=== PATIENT | female | born 1985 | race Two or more races ===

== ENCOUNTER 2017-11-30 18:10 | Inpatient (IN) | payer OTHER ==
[~2017-11-30] VITALS: Ht 157.5 cm; Wt 68.0 kg
[2017-11-30] MEDS ORDERED: ONDANSETRON HCL 4 MG/2 ML VIAL IV ONE (18:30)
[2017-11-30] MEDS ORDERED: LORazepam 2MG/ML-1ML VIAL IV ONE (18:30)
[2017-11-30] MEDS ORDERED: PANTOPRAZOLE 40 MG/10 ML VIAL IV ONE (18:30)
[2017-11-30] MEDS: SODIUM CHLORIDE 0.9% 1,000 ML IV SCH ×3 (18:48→22:56)
[2017-11-30 19:01] LABS: Basophils # (auto) 0 uL; Basophils % (auto) 0.2 % (0.0-2.0); Eosinophils # (auto) 0 uL; Hematocrit 42.9 % (36.0-46.0); Hemoglobin 14.3 g/dL (12.2-16.2); Lymphocytes # (auto) 0.5 uL; Lymphocytes % (auto) 2.9 % (10.0-50.0); Mean Corpuscular Hemoglobin 30.1 pg (28.0-32.0); Mean Corpuscular Hgb Conc. 33.3 g/dL (32.0-36.0); Mean Corpuscular Volume 90.3 fL (80.0-100.0); Monocytes # (auto) 0.9 uL; Monocytes % (auto) 5.2 % (0.0-12.0); Neutrophils % (auto) 91.7 % (37.0-80.0); Nucleated Red Blood Cells % 0.1 %; Platelet Count (auto) 424 10^3/uL (140-450); Red Blood Cells 4.75 10^6/uL (4.0-5.20); Red Cell Distribution Width 13.5 % (11.8-14.3); White Blood Cell 17.4 10^3/uL (4.4-10.8)
[2017-11-30 19:20] LABS: Calcium 9.4 mg/dL (8.5-10.1); Potassium 3.6 mmol/L (3.5-5.1)
[2017-11-30 19:24] LABS: Bilirubin, Total 0.8 mg/dL (0.2-1.0); Total Protein 9.2 g/dL (6.4-8.2)
[2017-11-30 19:52] LABS: BUN/Creatinine Ratio 14.2
[2017-11-30 21:43] LABS: Urine Bacteria NONE SEEN /hpf (None Seen); Urine Blood Negative /uL (Negative); Urine WBC <1 /hpf (0 - 5)
[2017-11-30] MEDS ORDERED: InsuLIN R (HUMAN) 100 UNITS in SODIUM CHL 0.9% 99 ML IV SCH (21:58)
[2017-11-30] MEDS ORDERED: SODIUM CHLORIDE 0.9% 1,000 ML IV SCH (22:23)
[2017-11-30] MEDS ORDERED: InsuLIN REG 1unit/0.01ml Soln (100units/ml) ONE (22:27)
[2017-11-30] MEDS ORDERED: HYDROcodone-ACET 5/325MG TAB PO PRN (22:30)
[2017-11-30] MEDS ORDERED: DEXTROSE (50%) 50ML SYRG IV PRN (22:30)
[2017-11-30] MEDS ORDERED: ACETAMINOPHEN 500 MG TAB PO PRN (22:30)
[2017-11-30] MEDS: ACCU-CHEK COMFORT CURVE STRIP VI SCH ×2 (22:35→22:57)
[2017-12-01] MEDS: SODIUM CHLORIDE 0.9% 1,000 ML IV SCH ×7 (00:16→17:41)
[2017-12-01] MEDS: ACCU-CHEK COMFORT CURVE STRIP VI SCH ×24 (01:30→18:08)
[2017-12-01] MEDS ORDERED: SODIUM CHLORIDE 0.9% 1,000 ML IV SCH (02:16)
[2017-12-01] MEDS: ONDANSETRON HCL 4 MG/2 ML VIAL IV PRN ×4 (02:25→19:00)
[2017-12-01 05:16] LABS: BUN/Creatinine Ratio 29.8; Calcium 8.5 mg/dL (8.5-10.1); Potassium 3.6 mmol/L (3.5-5.1)
[2017-12-01] MEDS ORDERED: LORazepam 2MG/ML-1ML VIAL ONE (07:25)
[2017-12-01] MEDS ORDERED: LORazepam 2MG/ML-1ML VIAL IV ONE (07:30)
[2017-12-01 11:04] LABS: BUN/Creatinine Ratio 32.3; Potassium 3.4 mmol/L (3.5-5.1)
[2017-12-01] MEDS ORDERED: LORazepam 2MG/ML-1ML VIAL IV PRN ×2 (13:15→15:45)
[2017-12-01] MEDS ORDERED: THROAT LOZENGES(CEPASTAT) MT PRN (15:30)
[2017-12-01] MEDS ORDERED: PANTOPRAZOLE 40 MG/10 ML VIAL IV ONE (15:45)
[2017-12-01 15:48] LABS: Basophils # (auto) 0 uL; Basophils % (auto) 0.3 % (0.0-2.0); Eosinophils # (auto) 0 uL; Hematocrit 37.1 % (36.0-46.0); Hemoglobin 12.4 g/dL (12.2-16.2); Lymphocytes # (auto) 1.1 uL; Lymphocytes % (auto) 6.1 % (10.0-50.0); Mean Corpuscular Hemoglobin 29.9 pg (28.0-32.0); Mean Corpuscular Hgb Conc. 33.3 g/dL (32.0-36.0); Mean Corpuscular Volume 89.9 fL (80.0-100.0); Monocytes # (auto) 1.2 uL; Monocytes % (auto) 6.9 % (0.0-12.0); Neutrophils # (auto) 15.6 uL; Neutrophils % (auto) 86.7 % (37.0-80.0); Platelet Count (auto) 350 10^3/uL (140-450); Red Blood Cells 4.13 10^6/uL (4.0-5.20); Red Cell Distribution Width 13.9 % (11.8-14.3)
[2017-12-01 16:03] LABS: Albumin 3.2 g/dL (3.4-5.0); BUN/Creatinine Ratio 32.2; Bilirubin, Total 0.4 mg/dL (0.2-1.0); Calcium 8.9 mg/dL (8.5-10.1); Potassium 3.4 mmol/L (3.5-5.1); Total Protein 7.4 g/dL (6.4-8.2)
[2017-12-01] MEDS ORDERED: PIPERACILLIN-TAZOB 3.375GM 100 ML IV ONE (16:30)
[2017-12-01] MEDS: POTASSIUM CHL 20MEQ/100ML 100 ML IV SCH ×2 (17:55→20:35)
[2017-12-01 18:21] LABS: BUN/Creatinine Ratio 28.6; Calcium 8.9 mg/dL (8.5-10.1); Potassium 3.2 mmol/L (3.5-5.1)
[2017-12-01] MEDS ORDERED: INSULIN LANTUS (GLARGINE) 1 /0.01ml (100units/ml) SC ONE (18:45)
[2017-12-01] MEDS ORDERED: DEXTROSE (50%) 50ML SYRG IV PRN (18:45)
[2017-12-01] MEDS ORDERED: ACCU-CHEK COMFORT CURVE STRIP VI SCH (20:00)
[2017-12-01] MEDS ORDERED: InsuLIN REG 1unit/0.01ml Soln (100units/ml) SC SCH (20:00)
[2017-12-01 20:44] LABS: Alcohol, Urine < 3.0 mg/dL (0-5); Amphetamine Screen, Urine NEGATIVE (NEGATIVE); Benzodiazephine Screen, Urine NEGATIVE (NEGATIVE); Cannabinoid Screen, Urine POSITIVE (NEGATIVE); Cocaine Screen, Urine NEGATIVE (NEGATIVE); Opiate Scree,Urine NEGATIVE (NEGATIVE); Phencyclidine Screen, Urine NEGATIVE (NEGATIVE)
[2017-12-01 20:50] LABS: Barbiturate Scree,Urine NEGATIVE (NEGATIVE)
[2017-12-01 21:20] VITALS: BP 145/93
[2017-12-02] MEDS ORDERED: PANTOPRAZOLE 40 MG/10 ML VIAL IV SCH (10:00)
[2017-12-02] MEDS ORDERED: ENOXAPARIN SOD 40 MG/0.4 ML SYRINGE SC SCH (10:00)
== END 2017-12-01 21:30 | disposition short-term general hospital (02) | DRG 637 ==
LOC: EDBD 18:10 → ER 18:17 → TELE 18:18
PROVIDERS: ADMIT Nurse Practitioner Family; ATTEND Internal Medicine
DX: E11.10 Type 2 diabetes mellitus with ketoacidosis without coma (principal); N17.0 Acute kidney failure with tubular necrosis; E11.21 Type 2 diabetes mellitus with diabetic nephropathy; F41.1 Generalized anxiety disorder; R00.0 Tachycardia, unspecified; K21.9 Gastro-esophageal reflux disease without esophagitis; N18.9 Chronic kidney disease, unspecified; D72.829 Elevated white blood cell count, unspecified; F12.10 Cannabis abuse, uncomplicated
CPT/HCPCS: 36415; 36600; 71045; 74176; 80048; 80053; 80307; 81001; 82010; 82805; 82962; 83036; 83605; 83735; 85025; 85379; 93005; 96361; 96365; 96375; C9113; J1815; J2405; J2543; J3480

== ENCOUNTER 2024-05-14 22:08 | Inpatient (IN) | payer OTHER ==
[~2024-05-14] VITALS: Ht 165.1 cm; Wt 65.6 kg
--- NOTE | 2024-05-14 22:46 | ED.PDOC ---
History of Present Illness HPI Comments 39-year-old female with PMHx DM2 presents with a chief complaint of vomiting, nausea, and hyperglycemia x onset today. Patient believes that she is going into diabetic ketoacidosis based on prior experiences. Patient mentions that she checked her blood sugar at 1700 and it was at 315. Patient mentions that she takes insulin injections and has been compliant with her medication. Patient is actively vomiting in triage. No other symptoms or modifying factors present at this time. Time Seen by MD: 22:40 Primary Care Provider: DR LIRIANO Reviewed Notes: Medications, Allergies Allergies: Coded Allergies: NO KNOWN ALLERGIES (Unverified , 11/30/17) Information Source: Patient Mode of Arrival: Wheelchair Severity: Moderate Timing: Hours Duration: Since onset Prehospital treatment: None Past Medical History PAST MEDICAL HISTORY: DM Surgical History: Denies all surgeries Social History Smoker: Non-Smoker Alcohol: Occasionally Drugs: Marijuana Lives In: Home Constitutional: denies: chills, diaphoresis, fatigue, fever, malaise, sweats, weakness, others EENTM: denies: blurred vision, double vision, ear bleeding, ear discharge, ear drainage, ear pain, ear ringing, eye pain, eye redness, hearing loss, mouth pain, mouth swelling, nasal discharge, nose bleeding, nose congestion, nose pebbles n, photophobia, tearing, throat pain, throat swelling, voice changes, others Respiratory: denies: cough, hemoptysis, orthopnea, SOB at rest, shortness of breath, SOB with excertion, stridor, wheezing, others Cardiovascular: denies: chest pain, dizzy spells, diaphoresis, Dyspnea on exertion, edema, irregular heart beat, left arm pain, lightheadedness, palpitations, PND, syncope, others Gastrointestinal: reports: nausea, vomiting; denies: abdomen distended, abdominal pain, blood streaked bowels, constipated, diarrhea, dysphagia, difficulty swallowing, hematemesis, melena, poor appetite, poor fluid intake, rectal bleeding, rectal pain, others Genitourinary: denies: abnormal vagina bleeding, burning, dyspareunia, dysuria, flank pain, frequency, hematuria, incontinence, pain, , vagina discharge, urgency, others Neurological: denies: dizziness, fainting, headache, left sided numbness, left sided weakness, numbness, paresthesia, pre-existing deficit, right sided numbness, right sided weakness, seizure, speech problems, tingling, tremors, weakness, others Musculoskeletal: denies: back pain, gout, joint pain, joint swelling, muscle pain, muscle stiffness, neck pain, others Integumetry: denies: bruises, change in color, change in hair/nails, dryness, laceration, lesions, lumps, rash, wounds, others Allergic/Immunocompromised: denies: Difficulty Healing, Frequent Infections, Hives, Itching, others Hematologic/Lymphatic: denies: anemia, blood clots, easy bleeding, easy bruising, swollen glands, others Endocrine: denies: excessive hunger, excessive sweating, excessive thirst, excessive urination, flushing, intolerance to cold, intolerance to heat, unexplained weight gain, unexplained weight loss, others Psychiatric: denies: anxiety, bipolar disorder, depression, hopeless, panic disorder, schizophrenia, sleepless, suicidal, others All Other Systems: Reviewed and Negative Physical Exam General Appearance: Moderate Distress, Normal HEENT: Normal ENT Inspection, Pharynx Normal, TMs Normal Neck: Full Range of Motion, Non-Tender, Normal, Normal Inspection Respiratory: Chest Non-Tender, Lungs Clear, No Accessory Muscle Use, No R espiratory Distress, Normal Breath Sounds Cardiovascular: Tachycardia Breast Exam: Deferred Gastrointestinal: No Organomegaly, Non Tender, No Pulsatile Mass, Normal Bowel Sounds, Soft, Other (VOMITING, NAUSEOUS ) Genitalia: Deferred Pelvic: Deferred Rectal: Deferred Extremities: No calf tenderness, Normal capillary refill, Normal inspection, Normal range of motion, Non-tender, No pedal edema Neurologic: Alert, galvanizing pot runner II-XII nml as Tested, No Motor Deficits, Normal Affect, Normal Mood, No Sensory Deficits Cerebellar Function: Normal Reflexes: Normal Skin: Dry, Normal Color, Warm Lymphatic: No Adenopathy Was a procedure done? Was a procedure done?: No Differential Dx Considerations may include: DKA, uncontrolled diabetes, gastroenteritis, viral syndrome X-Ray, Labs, Meds, VS Vital Signs Date Time Temp Pulse Resp B/P (MAP) Pulse Ox O2 Delivery O2 Flow Rate FiO2 05/14/24 22:35 97.1 111 18 94/69 (77) 98 Lab Test 05/15/24 00:00 05/14/24 23:22 05/14/24 22:53 05/14/24 22:52 Range/Units Lactic Acid Level Pending White Blood Count 13.3 H 4.4-10.8 10^3/uL Red Blood Count 5.02 4.0-5.20 10^6/uL Hemoglobin 16.2 12.2-16.2 g/dL Hematocrit 47.4 H 36.0-46.0 % Mean Corpuscular Volume 94.3 80.0-100.0 fL Mean Corpuscular Hemoglobin 32.2 H 28.0-32.0 pg Mean Corpuscular Hemoglobin Concent 34.1 32.0-36.0 g/dL Red Cell Distribution Width 13.3 11.8-14.3 % Platelet Count 278 140-450 10^3/uL Mean Platelet Volume 8.2 6.9-10.8 fL Neutrophils (%) (Auto) 77.1 37.0-80.0 % Lymphocytes (%) (Auto) 14.0 10.0-50.0 % Monocytes (%) (Auto) 8.6 0.0-12.0 % Eosinophils (%) (Auto) 0.0 0.0-7.0 % Basophils (%) (Auto) 0.3 0.0-2.0 % Neutrophils # (Auto) 10.2 H 1.6-8.6 10 ^3/uL Lymphocytes # (Auto) 1.9 0.4-5.4 10 ^3/uL Monocytes # (Auto) 1.1 0-1.3 10 ^3/uL Eosinophils # (Auto) 0 0-0.8 10 ^3/uL Basophils # (Auto) 0 0-0.2 10 ^3/uL Nucleated Red Blood Cells 0.0 % Sodium Level 132 L 136-145 mmol/L Potassium Level 3.3 L 3.5-5.1 mmol/L Chloride Level 92 L 98-107 mmol/L Carbon Dioxide Level 20 20-31 mmol/L Anion Gap 20 H 5-15 Blood Urea Nitrogen 34 H 9-23 mg/dL Creatinine 1.28 H 0.550-1.02 mg/dL Glomerular Filtration Rate Calc 54 >90 mL/min BUN/Creatinine Ratio 26.6 H 10.0-20.0 Serum Glucose 417 *H 74-106 mg/dL Calcium Level 9.9 8.7-10.4 mg/dL Total Bilirubin 0.9 0.2-1.0 mg/dL Aspartate Amino Transferase (AST) 17 13-40 U/L Alanine Aminotransferase (ALT) 19 7-40 U/L Alkaline Phosphatase 151 H 46-116 U/L Total Protein 8.2 5.7-8.2 g/dL Albumin 4.7 3.2-4.8 g/dL Lipase 29 12-53 U/L Beta-Hydroxybutyric Acid Pending Blood Gas Specimen Type Venous Blood Gas Sample Site Vbg - n/a Blood Gas Patient Temperature 37.0 Arterial Blood Date Drawn [id number] Mark Test Yes Venous Blood pH 7.603 *H 7.320-7.430 Venous Blood pCO2 at Patient Temp 23.5 L 38.0-54.0 mmHg Venous Blood pO2 at Patient Temp < 36.5 23.0-48.0 mmHg Venous Blood HCO3 22.7 22.0-29.0 mmol/L Venous Blood Base Excess 3.0 -2.0-3.0 mmol/L Blood Gas Modality Room air Blood Gas Spontaneous Rate 22 FiO2 % 21.0 Blood Gas Critical Value Read Back yes Blood Gas Notified Whom md marquez clifford Blood Gas Notified Time [id number] Blood Gas Notified By filleter christine saenz POC Glucose 473 *H 70-106 mg/dl Test 05/14/24 22:51 Range/Units POC Glucose 403 *H 70-106 mg/dl Current Medications Medications (Trade) Dose Ordered Sig/Sabino Route Start Time Stop Time Status Last Admin Sodium Chloride 1,000 ml @ 1,000 mls/hr Q1H ONCE IV 05/14/24 22:45 05/14/24 23:44 DC 05/14/24 23:05 Ondansetron HCl (Zofran) 4 mg ONCE ONCE IV 05/14/24 22:45 05/14/24 22:46 DC 05/14/24 23:05 Time of 1ST Reevaluation: 23:10 Reevaluation 1ST: Unchanged Patient Education/Counseling: Diagnosis, Treatment, Prognosis Family Education/Counseling: No Family Present Departure 1 Departure Time of Disposition: 00:17 (Patient is in DKA with an anion gap care than 20. Treating patient with fluids and insulin and we will admit patient for further workup.) Impression: Primary Impression: DKA, type 2 Qualified Codes: E11.10 - Type 2 diabetes mellitus with ketoacidosis without coma Additional Impression: Projectile vomiting with nausea Disposition: ADMITTED INPATIENT Admit to: ICU Condition: Critical Critical Care Note Critical Care Time?: Yes Critical care comment: DKA Authorized and Performed by: Maciel Clifford MD Total critical care time: Approximately 49 minutes Due to a high probability of clinically significant, life threatening deterioration, the patient required my highest level of preparedness to intervene emergently and I personally spent this critical care time directly and personally managing the patient. This critical care time included obtaining a history; examining the patient; pulse oximetry; ordering and review of studies; arranging urgent treatment with development of a management plan; evaluation of patient's response to treatment; frequent reassessment; and, discussions with other providers. This critical care time was performed to assess and manage the high probability of imminent, life-threatening deterioration that could result in multi-organ failure. It was exclusive of separately billable procedures and treating other patients and teaching time. Please see my other sections and the rest of the note for further information on patient assessment and treatment. Stability Stability form required: No I personally scribed for MACIEL CLIFFORD MD ([email or web address]) on 05/14/24 at 22:46. Electronically submitted by Harjit Cota ([email or web address]). MACIEL CLIFFORD MD May 14, 2024 22:46
[2024-05-14] MEDS: SODIUM CHLORIDE 0.9% 1,000 ML IV ONE (23:05)
[2024-05-14] MEDS: ONDANSETRON HCL 4 MG/2 ML VIAL IV ONE (23:05)
[2024-05-14 23:42] LABS: Basophils # (auto) 0 10 ^3/uL (0-0.2); Basophils % (auto) 0.3 % (0.0-2.0); Eosinophils # (auto) 0 10 ^3/uL (0-0.8); Hematocrit 47.4 % (36.0-46.0); Hemoglobin 16.2 g/dL (12.2-16.2); Lymphocytes # (auto) 1.9 10 ^3/uL (0.4-5.4); Mean Corpuscular Hemoglobin 32.2 pg (28.0-32.0); Mean Corpuscular Hgb Conc. 34.1 g/dL (32.0-36.0); Mean Corpuscular Volume 94.3 fL (80.0-100.0); Monocytes # (auto) 1.1 10 ^3/uL (0-1.3); Monocytes % (auto) 8.6 % (0.0-12.0); Neutrophils # (auto) 10.2 10 ^3/uL (1.6-8.6); Neutrophils % (auto) 77.1 % (37.0-80.0); Platelet Count (auto) 278 10^3/uL (140-450); Red Blood Cells 5.02 10^6/uL (4.0-5.20); Red Cell Distribution Width 13.3 % (11.8-14.3); White Blood Cell 13.3 10^3/uL (4.4-10.8)
[2024-05-15 00:11] LABS: Alanine Aminotransferase 19 U/L (7-40); Calcium 9.9 mg/dL (8.7-10.4); Carbon Dioxide 20 mmol/L (20-31); Lipase 29 U/L (12-53)
[2024-05-15 00:12] LABS: Albumin 4.7 g/dL (3.2-4.8); Alkaline Phosphatase 151 U/L (46-116); Anion Gap 20 (5-15); Aspartate Aminotransferase 17 U/L (13-40); BUN/Creatinine Ratio 26.6 (10.0-20.0); Bilirubin, Total 0.9 mg/dL (0.2-1.0); Blood Urea Nitrogen 34 mg/dL (9-23); Chloride 92 mmol/L (98-107); Potassium 3.3 mmol/L (3.5-5.1); Sodium 132 mmol/L (136-145); Total Protein 8.2 g/dL (5.7-8.2)
[2024-05-15 00:13] LABS: Glucose 417 mg/dL (74-106)
[2024-05-15] MEDS ORDERED: DEXTROSE (50%) 50ML SYRG IV PRN ×2 (00:15→11:15)
[2024-05-15] MEDS: SODIUM CHLORIDE 0.9% 1,000 ML IV SCH ×3 (00:30→07:20)
[2024-05-15] MEDS: INSULIN LANTUS (GLARGINE) 1 /0.01ml (100units/ml) SC ONE (00:30)
[2024-05-15 00:43] LABS: Lactic Acid w/Reflex 3.1 mmol/L (0.4-2.0)
--- NOTE | 2024-05-15 02:02 | DVH ---
EXAM: XY CHEST PORTABLE CLINICAL HISTORY: Nausea and Vomiting TECHNIQUE: Single AP view of the chest WID: COMPARISON: None FINDINGS: Lines and tubes: None Chest: The heart size and pulmonary vasculature is within normal limits. No pleural effusion, pneumothorax, or consolidation. The osseous structures are grossly intact. IMPRESSION: No acute cardiopulmonary abnormality.
[2024-05-15 02:56] LABS: Chloride 100 mmol/L (98-107); Sodium 136 mmol/L (136-145)
[2024-05-15 02:57] LABS: Anion Gap 16 (5-15); Carbon Dioxide 20 mmol/L (20-31)
[2024-05-15 02:58] LABS: Calcium 8.9 mg/dL (8.7-10.4)
[2024-05-15] MEDS: ACCU-CHEK COMFORT CURVE STRIP VI SCH ×2 (03:00→12:18)
[2024-05-15 03:12] LABS: Blood Urea Nitrogen 38 mg/dL (9-23); Glucose 347 mg/dL (74-106); Potassium 3.3 mmol/L (3.5-5.1)
[2024-05-15] MEDS ORDERED: MORPHINE SULFATE INJ 2 MG/ml SYRG IV PRN (03:15)
[2024-05-15] MEDS ORDERED: NITROGLYCERIN 0.4 MG SL TAB SL PRN (03:15)
[2024-05-15] MEDS: INSULIN DRIP 100 UNIT/100ML 100 ML IV SCH (03:30)
[2024-05-15] MEDS: ONDANSETRON HCL 4 MG/2 ML VIAL IV PRN (04:01)
[2024-05-15 04:51] LABS: Magnesium 2.3 mg/dL (1.6-2.6)
[2024-05-15 04:52] LABS: Phosphorus 2.9 mg/dL (2.4-5.1)
--- NOTE | 2024-05-15 05:16 | DVHHP2 ---
History of Present Illness Reason for Visit: Nausea and vomiting History of Present Illness 39-year-old female presents for evaluation nausea and vomiting. Patient reports a one day history of having elevated blood sugars with associated nausea and vomiting. Patient reports being compliant with her insulin regimen. Denies ab dominal pain. No fever or chills. No other acute symptoms. Past Medical History Diabetes mellitus Past Surgical History Denies Family History Noncontributory Smoke: No ALCOHOL: none Drugs: None Lives: with Family Review of Systems Review of Systems Review of systems are currently negative otherwise addressed in HPI. Allergies: Coded Allergies: NO KNOWN ALLERGIES (Unverified , 11/30/17) Medications Current Medications Medications Dose Ordered Sig/Sabino Route Start Time Stop Time Status Last Admin Dose Admin Sodium Chloride 1,000 ml @ 250 mls/hr Q4H IV 05/15/24 04:15 05/15/24 06:14 05/15/24 04:15 250 MLS/HR Sodium Chloride 1,000 ml @ 150 mls/hr Q6H40M IV 05/15/24 06:15 Insulin Human (Reg)/Sodium Chloride 100 ml @ 0.5 mls/hr Q24H IV 05/15/24 00:15 05/15/24 03:30 0.5 MLS/HR Dextrose 50 ml UD PRN IV 05/15/24 00:15 Diagnostic Test (Pha) 1 strip Q90MIN 05/15/24 01:30 05/15/24 03:30 1 STRIP Insulin Glargine 15 units DAILY SC 05/16/24 10:00 Ondansetron HCl 4 mg Q4HP PRN IV 05/15/24 03:15 05/15/24 04:01 4 MG Nitroglycerin 0.4 mg Q5MINP PRN SL 05/15/24 03:15 Morphine Sulfate 2 mg Q30M PRN IV 05/15/24 03:15 Exam Vital Signs Vital Signs Date Time Temp Pulse Resp B/P (MAP) Pulse Ox O2 Delivery O2 Flow Rate FiO2 05/15/24 03:50 98.5 116 18 99 98.5 05/14/24 22:35 94/69 (77) Exam Gen: 39-year-old female in mild distress Skin: Warm, dry, normal color and texture, no rash. HEENT: Normocephalic atraumatic, mucous membranes moist and pink. Neck: Cervical and supraclavicular nodes normal without enlargement, trachea is midline, thyroid gland is normal without masses. Pulmonary: Clear to auscultation and percussion bilaterally. Cardiac: Regular rate and rhythm. No murmur Abdomen: Soft, nontender, nondistended, bowel sounds present all 4 quadrants, no guarding, no rigidity, no organomegaly. Extremities: No cyanosis, clubbing, no edema Neuro: Cranial nerves II through XII grossly intact, normal affect and speech, no focal motor deficits. Labs/Xrays ORDERING PHYSICIAN: MACIEL CLIFFORD MD PROCEDURE(s): CXRP - CHEST PORTABLE REASON: Nausea and Vomiting ORDER NUMBER(s): [id number], ACCESSION NUMBER(s): [id number] EXAM: XY CHEST PORTABLE CLINICAL HISTORY: Nausea and Vomiting TECHNIQUE: Single AP view of the chest WID: COMPARISON: None FINDINGS: Lines and tubes: None Chest: The heart size and pulmonary vasculature is within normal limits. No pleural effusion, pneumothorax, or consolidation. The osseous structures are grossly intact. IMPRESSION: No acute cardiopulmonary abnormality. Labs Test 05/15/24 02:15 05/14/24 23:22 05/14/24 22:53 05/14/24 22:52 Range/Units Sodium Level 136 136-145 mmol/L Potassium Level 3.3 L 3.5-5.1 mmol/L Chloride Level 100 98-107 mmol/L Carbon Dioxide Level 20 20-31 mmol/L Anion Gap 16 H 5-15 Blood Urea Nitrogen 38 H 9-23 mg/dL Creatinine 1.00 0.550-1.02 mg/dL Glomerular Filtration Rate Calc 73 >90 mL/min BUN/Creatinine Ratio 38.0 H 10.0-20.0 Serum Glucose 347 H 74-106 mg/dL Lactic Acid Level 1.7 0.4-2.0 mmol/L Calcium Level 8.9 8.7-10.4 mg/dL Phosphorus Level 2.9 2.4-5.1 mg/dL Magnesium Level 2.3 1.6-2.6 mg/dL Beta-Hydroxybutyric Acid 3.394 H < 0.4 mmol/L White Blood Count 13.3 H 4.4-10.8 10^3/uL Red Blood Count 5.02 4.0-5.20 10^6/uL Hemoglobin 16.2 12.2-16.2 g/dL Hematocrit 47.4 H 36.0-46.0 % Mean Corpuscular Volume 94.3 80.0-100.0 fL Mean Corpuscular Hemoglobin 32.2 H 28.0-32.0 pg Mean Corpuscular Hemoglobin Concent 34.1 32.0-36.0 g/dL Red Cell Distribution Width 13.3 11.8-14.3 % Platelet Count 278 140-450 10^3/uL Mean Platelet Volume 8.2 6.9-10.8 fL Neutrophils (%) (Auto) 77.1 37.0-80.0 % Lymphocytes (%) (Auto) 14.0 10.0-50.0 % Monocytes (%) (Auto) 8.6 0.0-12.0 % Eosinophils (%) (Auto) 0.0 0.0-7.0 % Basophils (%) (Auto) 0.3 0.0-2.0 % Neutrophils # (Auto) 10.2 H 1.6-8.6 10 ^3/uL Lymphocytes # (Auto) 1.9 0.4-5.4 10 ^3/uL Monocytes # (Auto) 1.1 0-1.3 10 ^3/uL Eosinophils # (Auto) 0 0-0.8 10 ^3/uL Basophils # (Auto) 0 0-0.2 10 ^3/uL Nucleated Red Blood Cells 0.0 % Total Bilirubin 0.9 0.2-1.0 mg/dL Aspartate Amino Transferase (AST) 17 13-40 U/L Alanine Aminotransferase (ALT) 19 7-40 U/L Alkaline Phosphatase 151 H 46-116 U/L Total Protein 8.2 5.7-8.2 g/dL Albumin 4.7 3.2-4.8 g/dL Lipase 29 12-53 U/L Blood Gas Specimen Type Venous Blood Gas Sample Site Vbg - n/a Blood Gas Patient Temperature 37.0 Arterial Blood Date Drawn [id number] Mark Test Yes Venous Blood pH 7.603 *H 7.320-7.430 Venous Blood pCO2 at Patient Temp 23.5 L 38.0-54.0 mmHg Venous Blood pO2 at Patient Temp < 36.5 23.0-48.0 mmHg Venous Blood HCO3 22.7 22.0-29.0 mmol/L Venous Blood Base Excess 3.0 -2.0-3.0 mmol/L Blood Gas Modality Room air Blood Gas Spontaneous Rate 22 FiO2 % 21.0 Blood Gas Critical Value Read Back yes Blood Gas Notified Whom md marquez clifford Blood Gas Notified Time [id number] Blood Gas Notified By merchandising assistant christine saenz POC Glucose 473 *H 70-106 mg/dl Assessment/Plan Assessment/Plan Assessment Diabetic ketoacidosis Acute dehydration Admit the patient to [facility] to the hospitalist DKA protocol Continue treatment per orders Total critical care time excluding procedures performed this 45 minutes. Plan discussed with: Patient My Orders Orders - CHRISTI DIAZ Procedure Category Date Status Time Admit ADMIT 05/15/24 Transmitted 03:09 Ondansetron Hcl PHA 05/15/24 In Process (Zofran) 03:15 Complete Blood Count LAB 05/16/24 Verified 04:00 Comprehensive LAB 05/16/24 Verified Metabolic Panel 04:00 Npo (Nothing By DIET 05/15/24 Transmitted Mouth) Diet Breakfast Condition: Critical DIETER 05/15/24 In Process 03:09 Bedrest With Bathroom [facility] 05/15/24 In Process Privileg 03:09 Nitroglycerin [facility] 05/15/24 In Process Sublingual (Ntrostat 03:15 Morphine Sulfate PHA 05/15/24 In Process Injection 03:15 Stat Ekg For Chest [facility] 05/15/24 In Process Pain 03:09 Notify Md Of Changes DIETER 05/15/24 In Process From Base 03:09 Debeader For [facility] 05/15/24 In Process 24 Hours 03:09 Emergency Dysrhythmia [facility] 05/15/24 In Process Protocol 03:09 Rhythm Strips Once [facility] 05/15/24 In Process Every Shift 03:09 Oxygen By Nasal RT 05/15/24 Transmitted Cannula 03:09 Date of Service: May 15, 2024 Billing Provider: CHRISTI DIAZ Common Visit Codes: [id number] CARE 30-74 MIN CHRISTI DIAZ May 15, 2024 05:15
[2024-05-15 06:54] LABS: Calcium 9.4 mg/dL (8.7-10.4); Chloride 103 mmol/L (98-107); Sodium 140 mmol/L (136-145)
[2024-05-15 06:55] LABS: Anion Gap 12 (5-15); Carbon Dioxide 25 mmol/L (20-31)
[2024-05-15 07:01] LABS: Blood Urea Nitrogen 36 mg/dL (9-23); Glucose 200 mg/dL (74-106)
[2024-05-15 07:20] VITALS: PULSE 111; RESP 14; O2SAT 98
--- NOTE | 2024-05-15 11:18 | DVHPN2 ---
Progress Note Date Seen: May 15, 2024 Medical Necessity Reason Pt with a Central, PICC or Fol: No Subjective Patient reports: No new complaints Review of Systems: HEENT:Normal, CVS:Normal, RESPIRATORY:Normal, GI:Normal, :Normal, MSK:Normal, NEURO:Normal Objective vital signs Vital Sign Date Time Temp Pulse Resp B/P (MAP) Pulse Ox O2 Delivery O2 Flow Rate FiO2 05/15/24 10:00 112 19 138/92 (107) 98 05/15/24 07:20 Room Air* 0 21 05/15/24 03:50 98.5 98.5 Total Intake and Output 05/14/24 05/14/24 05/15/24 15:00 23:00 07:00 Intake Total 1000 ml Balance 1000 ml medications Current Medications Medications Dose Ordered Sig/Sabino Route Start Time Stop Time Status Last Admin Dose Admin Sodium Chloride 1,000 ml @ 150 mls/hr Q6H40M IV 05/15/24 06:15 Insulin Human (Reg)/Sodium Chloride 100 ml @ 0.5 mls/hr Q24H IV 05/15/24 00:15 05/15/24 03:30 0.5 MLS/HR Dextrose 50 ml UD PRN IV 05/15/24 00:15 Diagnostic Test (Pha) 1 strip Q90MIN 05/15/24 01:30 05/15/24 10:47 1 STRIP Insulin Glargine 15 units DAILY SC 05/16/24 10:00 Ondansetron HCl 4 mg Q4HP PRN IV 05/15/24 03:15 05/15/24 04:01 4 MG Nitroglycerin 0.4 mg Q5MINP PRN SL 05/15/24 03:15 Morphine Sulfate 2 mg Q30M PRN IV 05/15/24 03:15 Examination: GENERAL:Normal, HEENT:Normal, NECK:Normal, LUNGS:Normal, CVS:Normal, ABDOMEN:Normal, MSK:Normal, SKIN:Normal, NEURO:Normal, :Normal laboratory and microbiology Laboratory Tests 05/15/24 06:08 05/14/24 23:22 Test 05/15/24 06:08 Range/Units Serum Glucose 200 H 74-106 mg/dL Problem List/Assessment/Plan Problem List/Assessment/Plan #1 dka: lantus, ssi, ivf, wean off insulin drip #2 hypokalemia: correct #3 obesity #4 h/o drug abuse #5 sirs likely due to dka Plan discussed with: Patient My Orders My Orders Orders - CHRISTI ELIZABETH MD Procedure Category Date Status Time Glucose Blood PHA 05/15/24 Verified (Accu-Chek Comfort 12:00 Moderate Insulin Ss PHA 05/15/24 Verified 12:00 Dextrose 50% Syringe PHA 05/15/24 Verified 11:15 Potassium Chl Micheal PHA 05/15/24 Verified KCL 11:15 Complete Blood Count LAB 05/16/24 Verified 06:00 Comprehensive LAB 05/16/24 Verified Metabolic Panel 06:00 Magnesium LAB 05/16/24 Verified 05:00 Hemoglobin A1c LAB 05/16/24 Verified 06:00 Drug Screen LAB 05/15/24 Verified 11:12 Consistent DIET 05/15/24 Verified Carb(Ccho)Diabetes Lunch Pantoprazole PHA 05/15/24 Verified (Protonix) 11:15 Pantoprazole PHA 05/16/24 Verified (Protonix) 10:00 Urinalysis LAB 05/15/24 Uncollected 11:12 Critical Care Time (mins): 38 (critical care time 38 mins) Date of Service: May 15, 2024 Billing Provider: CHRISTI ELIZABETH MD Common Visit Codes: [id number] CARE 30-74 MIN CHRISTI ELIZABETH MD May 15, 2024 11:18
[2024-05-15] MEDS: InsuLIN REG 1unit/0.01ml Soln (100units/ml) SC SCH (12:12)
[2024-05-15] MEDS: POTASSIUM CHLORIDE 40 MEQ, LIDOCAINE 1% (LOCAL ANESTH.) 4 ML in SODIUM CHL 0.9% 250 ML IV ONE (12:20)
[2024-05-15] MEDS: PANTOPRAZOLE 40 MG/10 ML VIAL INJ IV ONE (12:24)
[2024-05-15 13:17] LABS: Anion Gap 10 (5-15); Carbon Dioxide 25 mmol/L (20-31); Chloride 107 mmol/L (98-107); Sodium 142 mmol/L (136-145)
[2024-05-15 13:18] LABS: Calcium 9.1 mg/dL (8.7-10.4)
[2024-05-15 13:23] LABS: BUN/Creatinine Ratio 32.6 (10.0-20.0)
[2024-05-15 13:29] LABS: Blood Urea Nitrogen 30 mg/dL (9-23); Glucose 119 mg/dL (74-106); Potassium 3.1 mmol/L (3.5-5.1)
[2024-05-15] MEDS: LORazepam 2MG/ML-1ML VIAL IV PRN (16:39)
[2024-05-15 18:40] VITALS: BP 160/86; PULSE 104; RESP 18; TEMP 98; O2SAT 92
[2024-05-15 18:47] LABS: Chloride 107 mmol/L (98-107); Sodium 140 mmol/L (136-145)
[2024-05-15 18:48] LABS: Anion Gap 7 (5-15); Calcium 8.4 mg/dL (8.7-10.4); Carbon Dioxide 26 mmol/L (20-31)
[2024-05-15 18:51] VITALS: BP_SYST 150; BP_SYST 160; BP_DIAS 86; PULSE 104; RESP 18; TEMP 98; O2SAT 100; O2SAT 92
[2024-05-15 18:53] LABS: BUN/Creatinine Ratio 42.5 (10.0-20.0)
[2024-05-15 18:57] VITALS: O2SAT 92
[2024-05-15 20:00] VITALS: PULSE 74; PULSE 85; RESP 19; O2SAT 98
[2024-05-15 20:05] LABS: Blood Urea Nitrogen 31 mg/dL (9-23); Glucose 144 mg/dL (74-106)
[2024-05-15 21:00] VITALS: BP 116/51; PULSE 58; RESP 18; TEMP 98.3; O2SAT 98
[2024-05-16 01:00] VITALS: BP 144/80; PULSE 94; RESP 18; TEMP 97.6; O2SAT 97
[2024-05-16 05:00] VITALS: BP 153/86; PULSE 96; RESP 18; TEMP 98; O2SAT 94
[2024-05-16 06:43] LABS: Basophils # (auto) 0 10 ^3/uL (0-0.2); Basophils % (auto) 0.2 % (0.0-2.0); Eosinophils # (auto) 0 10 ^3/uL (0-0.8); Eosinophils % (auto) 0.5 % (0.0-7.0); Hematocrit 40.5 % (36.0-46.0); Hemoglobin 14.3 g/dL (12.2-16.2); Lymphocytes # (auto) 1.7 10 ^3/uL (0.4-5.4); Lymphocytes % (auto) 21.2 % (10.0-50.0); Mean Corpuscular Hemoglobin 33.2 pg (28.0-32.0); Mean Corpuscular Hgb Conc. 35.4 g/dL (32.0-36.0); Mean Corpuscular Volume 93.7 fL (80.0-100.0); Monocytes # (auto) 0.7 10 ^3/uL (0-1.3); Monocytes % (auto) 8.5 % (0.0-12.0); Neutrophils # (auto) 5.5 10 ^3/uL (1.6-8.6); Neutrophils % (auto) 69.6 % (37.0-80.0); Nucleated Red Blood Cells % 0.1 %; Platelet Count (auto) 224 10^3/uL (140-450); Red Blood Cells 4.32 10^6/uL (4.0-5.20); Red Cell Distribution Width 12.7 % (11.8-14.3); White Blood Cell 7.9 10^3/uL (4.4-10.8)
[2024-05-16 07:01] LABS: Alanine Aminotransferase 18 U/L (7-40); Albumin 3.4 g/dL (3.2-4.8); Alkaline Phosphatase 116 U/L (46-116); Anion Gap 12 (5-15); Aspartate Aminotransferase 23 U/L (13-40); BUN/Creatinine Ratio 29.4 (10.0-20.0); Bilirubin, Total 0.5 mg/dL (0.2-1.0); Blood Urea Nitrogen 15 mg/dL (9-23); Carbon Dioxide 24 mmol/L (20-31); Chloride 105 mmol/L (98-107); Sodium 141 mmol/L (136-145)
[2024-05-16 07:02] LABS: Total Protein 5.9 g/dL (5.7-8.2)
[2024-05-16 07:06] LABS: Calcium 8.5 mg/dL (8.7-10.4); Glucose 119 mg/dL (74-106); Potassium 3.2 mmol/L (3.5-5.1)
[2024-05-16 08:00] VITALS: PULSE 97
[2024-05-16 09:02] VITALS: BP 126/75; PULSE 100; RESP 15; TEMP 98.4; O2SAT 99
[2024-05-16] MEDS: INSULIN LANTUS (GLARGINE) 1 /0.01ml (100units/ml) SC SCH (10:17)
[2024-05-16] MEDS: PANTOPRAZOLE 40 MG/10 ML VIAL INJ IV SCH (10:18)
--- NOTE | 2024-05-16 11:29 | DVHDS2 ---
Discharge Summary Date of Admission May 15, 2024 at 03:12 Date of Discharge: May 16, 2024 Labs/Diagnostic Data: Laboratory Results Test 05/16/24 10:12 05/16/24 05:50 05/15/24 02:15 05/14/24 23:22 POC Glucose 117 mg/dl (70-106) White Blood Count 7.9 10^3/uL (4.4-10.8) Red Blood Count 4.32 10^6/uL (4.0-5.20) Hemoglobin 14.3 g/dL (12.2-16.2) Hematocrit 40.5 % (36.0-46.0) Mean Corpuscular Volume 93.7 fL (80.0-100.0) Mean Corpuscular Hemoglobin 33.2 pg (28.0-32.0) Mean Corpuscular Hemoglobin Concent 35.4 g/dL (32.0-36.0) Red Cell Distribution Width 12.7 % (11.8-14.3) Platelet Count 224 10^3/uL (140-450) Mean Platelet Volume 7.9 fL (6.9-10.8) Neutrophils (%) (Auto) 69.6 % (37.0-80.0) Lymphocytes (%) (Auto) 21.2 % (10.0-50.0) Monocytes (%) (Auto) 8.5 % (0.0-12.0) Eosinophils (%) (Auto) 0.5 % (0.0-7.0) Basophils (%) (Auto) 0.2 % (0.0-2.0) Neutrophils # (Auto) 5.5 10 ^3/uL (1.6-8.6) Lymphocytes # (Auto) 1.7 10 ^3/uL (0.4-5.4) Monocytes # (Auto) 0.7 10 ^3/uL (0-1.3) Eosinophils # (Auto) 0 10 ^3/uL (0-0.8) Basophils # (Auto) 0 10 ^3/uL (0-0.2) Nucleated Red Blood Cells 0.1 % Sodium Level 141 mmol/L (136-145) Potassium Level 3.2 mmol/L (3.5-5.1) Chloride Level 105 mmol/L (98-107) Carbon Dioxide Level 24 mmol/L (20-31) Anion Gap 12 (5-15) Blood Urea Nitrogen 15 mg/dL (9-23) Creatinine 0.51 mg/dL (0.550-1.02) Glomerular Filtration Rate Calc 120 mL/min (>90) BUN/Creatinine Ratio 29.4 (10.0-20.0) Serum Glucose 119 mg/dL (74-106) Hemoglobin A1c 11.3 % A1C (<5.7) Calcium Level 8.5 mg/dL (8.7-10.4) Magnesium Level 2.0 mg/dL (1.6-2.6) Total Bilirubin 0.5 mg/dL (0.2-1.0) Aspartate Amino Transferase (AST) 23 U/L (13-40) Alanine Aminotransferase (ALT) 18 U/L (7-40) Alkaline Phosphatase 116 U/L (46-116) Total Protein 5.9 g/dL (5.7-8.2) Albumin 3.4 g/dL (3.2-4.8) Lactic Acid Level 1.7 mmol/L (0.4-2.0) Phosphorus Level 2.9 mg/dL (2.4-5.1) Beta-Hydroxybutyric Acid 3.394 mmol/L (< 0.4) Lipase 29 U/L (12-53) Test 05/14/24 22:53 Blood Gas Specimen Type Venous Blood Gas Sample Site Vbg - n/a Blood Gas Patient Temperature 37.0 Arterial Blood Date Drawn [id number] Mark Test Yes Venous Blood pH 7.603 (7.320-7.430) Venous Blood pCO2 at Patient Temp 23.5 mmHg (38.0-54.0) Venous Blood pO2 at Patient Temp < 36.5 mmHg (23.0-48.0) Venous Blood HCO3 22.7 mmol/L (22.0-29.0) Venous Blood Base Excess 3.0 mmol/L (-2.0-3.0) Blood Gas Modality Room air Blood Gas Spontaneous Rate 22 FiO2 % 21.0 Blood Gas Critical Value Read Back yes Blood Gas Notified Whom md marquez clifford Blood Gas Notified Time [id number] Blood Gas Notified By mony saenz Other Laboratory Tests 05/16/24 05:50 Brief Hx & Hospital Course: see dictated note Condition at Discharge: Fair Final Diagnosis/Problems List dka Discharge Disposition: Home Discharge Instruct/Medications Diet: Consistent carbohydrate Activity: No Restrictions, As Tolerated Follow Up/Referral: maira vaz Medications: resume home lantus script to pharmacy Discharge Statement: "Patient was advised to return to the ER or call 911 if any headaches, dizziness, shortness of breath, chest pain, abdominal pain, bleeding, fevers, or worsening of medical condition. Patient was counseled about treatment plan, medications, possible side effects, patientverbalized understanding. All questions were answered to the best of my ability. This discharge took greater then 30 minutes in planning, reviewing documentation, counseling the patient, and discussing with other team members." ASSESSMENT ASSESSMENT Assessment dka Date of Service: May 16, 2024 Billing Provider: CHRISTI ELIZABETH MD Common Visit Codes: [id number]/OBS DISCH DAY >30min CHRISTI ELIZABETH MD May 16, 2024 11:29
[2024-05-16] MEDS ORDERED: INSU100I49 SC (11:33)
[2024-05-16] MEDS ORDERED: PANT40TA2 PO (11:35)
--- NOTE | 2024-05-16 11:50 | DVHDS ---
DATE OF DISCHARGE: 05/16/2024 HISTORY OF PRESENT ILLNESS: The patient is a 39-year-old lady who was admitted with persistent nausea, vomiting and elevated blood sugar. She has a history of diabetes mellitus. HOSPITAL COURSE: The patient was noted to be in diabetic ketoacidosis. The patient's creatinine was 1.28. The patient's blood sugar was 473. She was placed on insulin drip and subsequently on injectable insulin. Chest x-ray done showed no acute abnormality. The patient sugars have since improved. Hemoglobin A1c was elevated at 11.3. The patient is now tolerating an oral diet. She will be discharged home to resume her home Lantus as well as to be on a regular insulin sliding scale. She will follow up with Jesse in 1 week. FINAL DIAGNOSES: Therefore, * Diabetic ketoacidosis. * Hypokalemia. * Obesity. * History of drug abuse. * Systemic inflammatory response syndrome likely secondary to diabetic ketoacidosis. Time spent in discharge planning and review of plan with the patient and nursing was 39 minutes. MD MOOK Rangel/REANNA TID: [id number] RECEIPT: [id number]
[2024-05-16] MEDS: POTASSIUM CHL 20 Meq TABLET PO ONE (13:28)
== END 2024-05-16 16:30 | disposition home or self-care (01) | DRG 638 ==
LOC: ER 22:08 → TELE 05-15 03:12 → EAST 05-15 18:33 → TELE-E-ADS 05-16 02:19
PROVIDERS: ADMIT Nurse Practitioner; ATTEND Internal Medicine
PROC: 05HC33Z Insertion of Infusion Device into Left Basilic Vein, Percutaneous Approach (ICD-10-PCS; principal; 2024-05-15)
PROC: B54NZZA Ultrasonography of Left Upper Extremity Veins, Guidance (ICD-10-PCS; 2024-05-15)
DX: E11.10 Type 2 diabetes mellitus with ketoacidosis without coma (principal); R65.10 Systemic inflammatory response syndrome (SIRS) of non-infectious origin without acute organ dysfunction; E86.0 Dehydration; E87.6 Hypokalemia; E66.9 Obesity, unspecified; Z68.24 Body mass index [BMI] 24.0-24.9, adult
CPT/HCPCS: 36415; 36600; 71045; 80048; 80053; 82010; 82805; 82962; 83036; 83605; 83690; 83735; 84100; 85025; 96361; 96372; 96374; 99291; G0378; J1815; J2003; J2405; J2470